=== PATIENT | female | born 1960 | race Caucasian/White ===

== ENCOUNTER 2016-08-16 18:48 | Emergency (ER) | payer BC ==
[~2016-08-16] VITALS: Ht 160 cm; Wt 75.7 kg
[2016-08-16 19:03] VITALS: BP 104/68; PULSE 67; RESP 15; TEMP 97.6; O2SAT 99
--- NOTE | 2016-08-16 19:11 | NUR ---
Patient triaged and placed in waiting room. VSS and patient appears in no acute distress at this time. Accompanied by daughter, awaiting available bed, and MD notified of need for MSE.
--- NOTE | 2016-08-16 19:20 | NUR ---
Patient to ER 07 to gown for evaluation. Side rails up.
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
--- NOTE | 2016-08-16 19:40 | NUR ---
ER CHANTAL Gunter at bedside examining patient.
[2016-08-16] MEDS ORDERED: DIPH-TET-PERTUS Vaccine 0.5 ML VIAL (ADACEL) IM ONE (19:45)
[2016-08-16] MEDS ORDERED: HYDROcodone/ACETAMIN 5-325 MG TAB (NORCO/ VICODIN) PO ONE (20:30)
[2016-08-16 21:55] VITALS: BP 109/74; PULSE 70; RESP 15; TEMP 98; O2SAT 99
--- NOTE | 2016-08-16 21:55 | NUR ---
Patient given written and verbal discharge instructions and verbalizes understanding. ER MD discussed with patient the results and treatment provided.Patient in stable condition. ID arm band removed. Rx of motrin given. Patient educated on pain management and to follow up with PMD. Pain Scale 2/10. Opportunity for questions provided and answered.
== END 2016-08-16 21:55 | disposition home or self-care (01) ==
LOC: SED 18:48
DX: S61.011A Laceration without foreign body of right thumb without damage to nail, initial encounter (principal); W45.8XXA Other foreign body or object entering through skin, initial encounter; Y93.89 Activity, other specified; Y99.8 Other external cause status; Y92.89 Other specified places as the place of occurrence of the external cause
CPT/HCPCS: 90715; 99283

== ENCOUNTER 2021-05-08 22:10 | Emergency (ER) | payer BC ==
[~2021-05-08] VITALS: Ht 160 cm; Wt 74.8 kg
[2021-05-08 22:26] VITALS: BP_SYST 114
--- NOTE | 2021-05-08 22:32 | NUR ---
ER at bedside examining patient.
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
[2021-05-08] MEDS ORDERED: AMOXICILLIN/CLAVULANATE POTASSIUM 875 MG TABLET PO ONE (22:45)
[2021-05-08] MEDS ORDERED: DIPH-TET-PERTUS Vaccine 0.5 ML VIAL (ADACEL) I.M. ONE ×2 (22:45→22:54)
--- NOTE | 2021-05-08 22:57 | NUR ---
PTS BITES CLEANSED AND IRRIGIATED WITH 1000 ML OF NACL. PT TOLERATED WELL.
[2021-05-08] MEDS ORDERED: AMOX-426 PO (23:35)
[2021-05-08 23:42] VITALS: BP_SYST 114
--- NOTE | 2021-05-08 23:43 | NUR ---
Patient given written and verbal discharge instructions and verbalizes understanding. ER MD discussed with patient the results and treatment provided. Patient in stable condition. ID arm band removed. Rx of AUGMENTIN given. Patient educated on pain management and to follow up with PMD. Pain Scale 0/10. Opportunity for questions provided and answered. Medication side effect fact sheet provided.
== END 2021-05-08 23:43 | disposition home or self-care (01) ==
LOC: SED 22:10
DX: S81.852A Open bite, left lower leg, initial encounter (principal); Z79.899 Other long term (current) drug therapy; W54.0XXA Bitten by dog, initial encounter; Y93.89 Activity, other specified; Y92.89 Other specified places as the place of occurrence of the external cause; Y99.8 Other external cause status
CPT/HCPCS: 90715; 99283